=== PATIENT | female | born 1960 | race Caucasian/White ===

== ENCOUNTER 2017-02-26 06:46 | Day surgery (SDC) | payer BC ==
[~2017-02-26 06:46] MED LIST: Cefuroxime 10 MG/ML SYRINGE EYERT SCH; Lidocaine 1% PF 2 ML SDV INJECT SCH; Pilocarpine 4% Ophth Soln 15 ML Bot EYERT SCH
--- NOTE | 2017-02-26 07:07 | PCM.PREANE ---
Preanesthetic Assessment - Anesthesia/Transfusion/Family Hx Anesthesia History: Prior Anesthesia Without Reaction Type of Anesthesia Reaction: Other (see below) (morphine causes intense vomiting /nausea.) Family History of Anesthesia Reaction: No Transfusion History: No Prior Transfusion(s) Intubation History: Unknown - Review of Systems General: No Symptoms Pulmonary: No Symptoms (pneumonia 10 weeks ago/inhaler last used 2 weeks ago), Cough Cardiovascular: No Symptoms (pacemaker) Gastrointestinal: No Symptoms Neurological: No Symptoms (motion sickness noted), Dizziness (history of vertigo ), Headache Other: Reports: Diabetes (patient does not check on a regular basis.), Sinus Problem (post nasal drip) - Physical Assessment NPO Status Date: 02/25/17 NPO Status Time: 23:00 Pulse: 91 O2 Sat by Pulse Oximetry: 94 Respiratory Rate: 16 Blood Pressure: 126/84 Temperature: 36.1 C Height: 1.68 m Weight: 90.718 kg ASA Class: 2 Mental Status: Alert & Oriented x3 Airway Class: Mallampati = 2 Dentition: Reports: Normal Dentition, Caries Thyro-Mental Finger Breadths: 3 Mouth Opening Finger Breadths: 3 ROM/Head Extension: Full Lungs: Clear to Auscultation, Normal Respiratory Effort Cardiovascular: Regular Rate, Regular Rhythm, No Murmurs - Allergies Allergies/Adverse Reactions: Allergies Allergy/AdvReac Type Severity Reaction Status Date / Time Cephalosporins Allergy Cannot Verified 02/25/17 10:17 Remember Penicillins Allergy Cannot Verified 02/25/17 10:17 Remember Sulfa (Sulfonamide Allergy Cannot Verified 02/25/17 10:17 Antibiotics) Remember decongestants Allergy Cannot Uncoded 02/25/17 10:17 Remember hay fever Allergy Cannot Uncoded 02/25/17 10:17 Remember - Anesthesia Plan Pre-Op Medication Ordered: None - Acknowledgements Anesthesia Type Planned: MAC Pt an Appropriate Candidate for the Planned Anesthesia: Yes Alternatives and Risks of Anesthesia Discussed w Pt/Guardian: Yes Pt/Guardian Understands and Agrees with Anesthesia Plan: Yes PreAnesthesia Questionnaire - HOME MEDS Home Medications: Home Meds Cyclobenzaprine [Flexeril] 10 mg PO TID PRN 02/25/17 [History] Estrogen,Con/M-Progest Acet [Prempro 0.45-1.5 MG] 1 tab PO DAILY 02/25/17 [ History] Furosemide [Furosemide] 20 mg PO DAILY 02/25/17 [History] Gabapentin [Neurontin] 100 mg PO DAILY 02/25/17 [History] Montelukast Sodium [Montelukast Sodium] 10 mg PO DAILY 02/25/17 [History] Potassium Chloride [Klor-Con 10] 10 meq PO DAILY 02/25/17 [History] Pramipexole Di-HCl [Pramipexole Dihydrochloride] 0.125 mg PO TID 02/25/17 [ History] - CURRENT (IN HOUSE) MEDS Current Meds: Current Medications Brimonidine Tartrate (Alphagan 0.2% Ophth Soln) 0 ml EYERT ASDIRECTED TREVER Cefuroxime Sodium (Zinacef) 0 mg EYERT ASDIRECTED TREVER Lidocaine HCl (Xylocaine-Mpf 1%) 10 ml INJECT ASDIRECTED TREVER Ofloxacin (Ocuflox 0.3% Ophth Soln) 1 ml EYERT ASDIRECTED TREVER Phenylephrine HCl (Jesus-Synephrine 2.5% Ophth Soln) 0 ml EYERT ASDIRECTED TREVER Pilocarpine HCl (Pilocar 4% Ophth Soln) 0 ml EYERT ASDIRECTED TREVER Tetracaine HCl (Tetracaine 0.5% Steri-Unit Tennille) 0 ml EYERT ASDIRECTED TREVER Tropicamide (Mydriacyl 1% Ophth Soln) 0 ml EYERT ASDIRECTED TREVER Stop: 03/01/17 06:01
[2017-02-26] MEDS: Ofloxacin 0.3% Ophth Soln 5 ML Bottle EYERT SCH ×3 (07:10→08:29)
[2017-02-26] MEDS: Brimonidine 0.2% Ophth Soln 5 ML Bottle EYERT SCH ×3 (07:15→08:29)
[2017-02-26] MEDS: Phenylephrine 2.5% Ophth Soln 2 ML Bot EYERT SCH ×5 (07:20→08:12)
[2017-02-26] MEDS: Tetracaine HCl/PF 0.5% 4 ML Bottle EYERT SCH ×2 (08:01→08:24)
--- NOTE | 2017-02-26 08:31 | PCM48HPAN ---
Post Anesthesia Note - EVALUATION WITHIN 48HRS OF ANESTHETIC Vital Signs in Normal Range: Yes Patient Participated in Evaluation: Yes Respiratory Function Stable: Yes Airway Patent: Yes Cardiovascular Function Stable: Yes Hydration Status Stable: Yes Pain Control Satisfactory: Yes Nausea and Vomiting Control Satisfactory: Yes Mental Status Recovered: Yes
== END 2017-02-26 08:38 | disposition home or self-care (01) ==
LOC: JD.SDS 06:46
PROVIDERS: ATTEND Ophthalmology
DX: H25.813 Combined forms of age-related cataract, bilateral (principal); M19.90 Unspecified osteoarthritis, unspecified site; J45.909 Unspecified asthma, uncomplicated; E11.9 Type 2 diabetes mellitus without complications; G47.30 Sleep apnea, unspecified; Z95.0 Presence of cardiac pacemaker; Z90.49 Acquired absence of other specified parts of digestive tract; Z98.890 Other specified postprocedural states; Z83.3 Family history of diabetes mellitus; Z83.518 Family history of other specified eye disorder; Z79.899 Other long term (current) drug therapy; Z79.4 Long term (current) use of insulin; Z79.52 Long term (current) use of systemic steroids; Z88.1 Allergy status to other antibiotic agents; Z88.0 Allergy status to penicillin; Z88.2 Allergy status to sulfonamides; Z88.8 Allergy status to other drugs, medicaments and biological substances
CPT/HCPCS: 66984; V2632; A9270-GY